=== PATIENT | male | born 1995 | race Hispanic/Latino ===

== ENCOUNTER 2022-04-10 18:47 | Emergency (ER) | payer OTHER ==
[~2022-04-10] VITALS: Ht 177.8 cm; Wt 90.7 kg
[2022-04-10 19:18] LABS: BASOPHILS % (AUTO) 0.3 % (0.0-5.0); EOSINOPHILS % (AUTO) 0.1 % (0.0-8.0); HEMATOCRIT 46.1 % (42-54); LYMPHOCYTES % (AUTO) 25.9 % (21.0-51.0); MEAN CORPUSCULAR HEMOGLOBIN 31.3 pg (27.0-33.0); MEAN CORPUSCULAR HGB CONC 36.4 g/dL (32.0-36.0); MEAN CORPUSCULAR VOLUME 85.8 fL (79-99); MONOCYTES % (AUTO) 7.4 % (3.0-13.0); NEUTROPHILS % (AUTO) 65.8 % (40.0-77.0); PLATELET COUNT (AUTO) 230 K/uL (130-400); RED BLOOD CELL COUNT(AUTO) 5.37 MIL/uL (4.50-6.20); RED CELL DISTRIBUTION WIDTH 11.6 % (11.0-15.5); WHITE BLOOD COUNT (AUTO) 10.1 K/uL (4.8-10.8)
[2022-04-10 19:28] LABS: CREATININE 0.7 mg/dL (0.5-1.5)
[2022-04-10 19:33] LABS: ALBUMIN 4.6 g/dL (3.5-5.0); TOTAL PROTEIN, SERUM 8.9 g/dL (6.0-8.3)
[2022-04-10 19:55] LABS: APPEARANCE,URINE CLOUDY (CLEAR); BILIRUBIN,URINE MODERATE (NEGATIVE); COLOR,URINE YELLOW (YELLOW); GLUCOSE, URINE (UA) >=1000 mg/dL (NEGATIVE); KETONES,URINE >=80 mg/dL (NEGATIVE); LEUKOCYTE ESTERASE ,URINE NEGATIVE (NEGATIVE); NITRATE,URINE NEGATIVE (NEGATIVE); OCCULT BLOOD,URINE SMALL (NEGATIVE); PH,URINE 5.5 (5.0-8.0); PROTEIN,URINE 100 mg/dL (NEGATIVE); UROBILINOGEN,URINE 0.2 mg/dL (0.2-1.0)
[2022-04-10] MEDS ORDERED: INSULIN HUMULIN R 100 UNIT/ML 3ML SQ ONE (20:00)
[2022-04-10] MEDS ORDERED: 0.9% NACL 500ML IV.SOLN 500 ML IV SCH ×2 (20:00→21:00)
[2022-04-10 20:07] LABS: BACTERIA,URINE Few /HPF (None Seen); YEAST,URINE BUDDING Few /HPF (None Seen)
[2022-04-10 20:08] LABS: SQUAMOUS EPITHELIAL CELL,UR Rare /HPF (0-2)
[2022-04-10] MEDS ORDERED: METF-444 PO (20:43)
[2022-04-10] MEDS ORDERED: FLUC150T PO (20:43)
[2022-04-10] MEDS ORDERED: FLUCONAZOLE 100 MG TAB PO ONE (21:00)
[2022-04-10 22:00] VITALS: BP 139/84
== END 2022-04-10 22:06 | disposition home or self-care (01) ==
LOC: EEVIPCON 18:47 → EDH 18:47
DX: E11.9 Type 2 diabetes mellitus without complications (principal); B37.9 Candidiasis, unspecified
CPT/HCPCS: 99283; 80053; 85025; 82948; 81001; 36415; 96372; J1815; J7040